=== PATIENT | female | born 1985 | race Two or more races ===

== ENCOUNTER 2017-11-20 17:13 | Emergency (ER) | payer OTHER ==
[~2017-11-20] VITALS: Ht 160 cm; Wt 126.6 kg
[~2017-11-20 17:13] MED LIST: AMOX1TAB12 PO; IRON325 ( 651 PO; PERCOCET 5/3251 TAB PO; SYNTHROID125 MCG PO; SYNTHROID50 MCG
== END 2017-11-20 20:32 | disposition home or self-care (01) ==
LOC: ER 17:13
DX: M75.92 Shoulder lesion, unspecified, left shoulder (principal); M54.89 Other dorsalgia

== ENCOUNTER 2017-11-29 17:13 | Emergency (ER) | payer OTHER ==
[~2017-11-29] VITALS: Ht 162.6 cm; Wt 126.1 kg
== END 2017-11-29 20:51 | disposition home or self-care (01) ==
LOC: ER 17:13
DX: M62.838 Other muscle spasm (principal)

== ENCOUNTER 2018-01-19 08:26 | Emergency (ER) | payer OTHER ==
[~2018-01-19] VITALS: Ht 162.6 cm; Wt 123.4 kg
== END 2018-01-19 10:30 | disposition home or self-care (01) ==
LOC: ER 08:26
DX: M94.0 Chondrocostal junction syndrome [Tietze] (principal)

== ENCOUNTER 2018-05-10 19:16 | Emergency (ER) | payer OTHER ==
[~2018-05-10] VITALS: Ht 162.6 cm; Wt 119.7 kg
== END 2018-05-10 21:04 | disposition home or self-care (01) ==
LOC: ER 19:16
DX: M94.0 Chondrocostal junction syndrome [Tietze] (principal)

== ENCOUNTER 2018-06-03 17:40 | Emergency (ER) | payer OTHER ==
[~2018-06-03] VITALS: Ht 162.6 cm; Wt 123.4 kg
== END 2018-06-03 19:39 | disposition home or self-care (01) ==
LOC: ER 17:40
DX: M54.5 Low back pain (principal)